=== PATIENT | male | born 1990 | race African-American/Black ===

== ENCOUNTER 2020-02-05 11:38 | Emergency (ER) | payer SELFPAY ==
[~2020-02-05] VITALS: Ht 180.3 cm; Wt 89.0 kg
[2020-02-05 11:44] VITALS: BP 147/88
== END 2020-02-05 14:00 | disposition left against medical advice (07) ==
LOC: ER 11:55
DX: R51.9 Headache, unspecified (principal); Z53.21 Procedure and treatment not carried out due to patient leaving prior to being seen by health care provider